=== PATIENT | female | born 1995 | race Two or more races ===

== ENCOUNTER 2024-01-21 03:33 | Emergency (ER) | payer OTHER ==
[~2024-01-21] VITALS: Ht 160 cm; Wt 49.9 kg
[2024-01-21 03:39] VITALS: BP 130/79; TEMP 98.1; O2SAT 98
[2024-01-21] MEDS ORDERED: ALPRAZOLAM 0.25 MG TABLET PO ONE (04:30)
== END 2024-01-21 04:25 ==
LOC: ER 03:41
DX: F41.0 Panic disorder [episodic paroxysmal anxiety] (principal); F41.9 Anxiety disorder, unspecified